=== PATIENT | female | born 1995 ===

== ENCOUNTER 2020-02-10 08:09 | Inpatient (IN) | payer OTHER ==
[2020-02-10] MEDS ORDERED: Sodium Chloride 0.9% 2.5 ML Syringe FLUSH PRN (09:14)
[2020-02-10] MEDS ORDERED: Carboprost Tromethamine 250 MCG/1 ML Amp IM PRN (09:14)
[2020-02-10] MEDS ORDERED: Butorphanol 1 MG/ML SDV IVPUSH PRN (09:14)
[2020-02-10] MEDS ORDERED: Nalbuphine 10 MG/1 ML Vial IVPUSH PRN (09:14)
[2020-02-10] MEDS ORDERED: Sodium Chloride 0.9% 10 ML Syringe FLUSH PRN (09:14)
[2020-02-10] MEDS ORDERED: Tranexamic Acid 1,000 MG in Sodium Chloride 0.9% 100 ML IV PRN (09:14)
[2020-02-10] MEDS ORDERED: Water For Irrigation,Sterile 1,000 ML Container IRR PRN (09:14)
[2020-02-10] MEDS ORDERED: Sodium Chloride 0.9% 10 ML SDV IV PRN (09:14)
[2020-02-10] MEDS ORDERED: Ondansetron 4 MG/2 ML SDV IVPUSH PRN (09:14)
[2020-02-10] MEDS ORDERED: Misoprostol 200 MCG Tab PO PRN (09:14)
[2020-02-10] MEDS ORDERED: Methylergonovine 0.2 MG/1 ML Amp IM PRN (09:14)
[2020-02-10] MEDS ORDERED: Lidocaine 1% 50 ML MDV INJECT PRN (09:14)
[2020-02-10] MEDS ORDERED: Lactated Ringers 1,000 ML IV SCH (09:15)
[2020-02-10] MEDS ORDERED: Oxytocin/0.9 % Sodium Chloride 30 UNIT/500 ML BAG IV SCH ×2 (09:15→09:30)
[2020-02-10] MEDS ORDERED: Witch Hazel Medicated Pads 40/Jar TOP PRN (11:27)
[2020-02-10] MEDS ORDERED: Lanolin 100% Cream 7 GM Tube TOP PRN (11:27)
[2020-02-10] MEDS ORDERED: Benzocaine/Menthol 20%-0.5% Spray 78 GM Cannister TOP PRN (11:27)
[2020-02-10] MEDS ORDERED: Ibuprofen 400 MG Tab PO PRN (11:27)
[2020-02-10] MEDS ORDERED: Bisacodyl 10 MG Supp RECTAL PRN (11:27)
[2020-02-10] MEDS ORDERED: Acetaminophen 500 MG Tab PO PRN (11:27)
[2020-02-10] MEDS ORDERED: oxyCODONE 5 MG Tab PO PRN (11:27)
[2020-02-10] MEDS ORDERED: Ibuprofen 800 MG Tab PO PRN (11:27)
[2020-02-10] MEDS ORDERED: Docusate Sodium 100 MG Cap PO PRN (11:27)
--- NOTE | 2020-02-10 11:34 | PCM.OPNOTE ---
- General Post-Op/Procedure Note Date of Surgery/Procedure: 02/10/20 Operative Procedure(s): /2nd MLL repaired Findings: Viable female APGARs 9, 9 weight pending. Spontaneous delivery intact placenta with 3V cord Pre Op Diagnosis: 40/4 week IUP. SROM/labor Post-Op Diagnosis: Same Anesthesia Technique: Local, Other (see below) (pudendal) Primary Surgeon: Joyce Rudolph EBL in mLs: 300 Complications: none known Condition: Good Free Text/Narrative:: Dictation [id number]
--- NOTE | 2020-02-10 12:27 | OR ---
SURGEON: Joyce Rudolph M.D. DATE OF PROCEDURE: 02/10/2020 PREOPERATIVE DIAGNOSES: 1. 40 and 4 weeks' intrauterine . 2. Spontaneous rupture of membranes, active labor. POSTOPERATIVE DIAGNOSES: 1. 40 and 4 weeks' intrauterine . 2. Spontaneous rupture of membranes, active labor. PROCEDURE: Spontaneous vaginal delivery with second-degree midline laceration, repaired. PRIMARY SURGEON: Joyce Rudolph M.D. ANESTHESIA: Pudendal with local. ESTIMATED BLOOD LOSS: 300 mL. COMPLICATIONS: None known. FINDINGS: Viable female. scores of 9 at 1 minute and 9 at 5 minutes. Weight is pending. Spontaneous delivery, intact placenta, 3-vessel cord. DISPOSITION: Infant to nursery. Mom in LDRP. PROCEDURE DETAILS: Batsheva is a 24-year-old, G1, P0, at 40 and 4 weeks' gestational age, presented on the morning of 02/10/2020 with leakage of fluid beginning at approximately 7 a.m. Upon presentation, she was found to be grossly ruptured, clear fluid. She is group B strep negative. She was admitted, routine labs drawn. IV hydration was initiated. She was found to be 4 to 5 cm. She quickly progressed within the next hour to feeling pushy and was requesting epidural. She at that time was found to be complete, 100% effaced, at a +1 station. heart tones 140s. Upon my arrival, options discussed with the patient and she opted to proceed with pudendal block and to start pushing efforts. The patient was placed in modified dorsal lithotomy position and prepped and draped in the usual aseptic manner using 1% lidocaine, was able to palpate the pudendal notch on either side of the pelvis and 5 mL of 1% lidocaine was instilled at this region on the right side followed by the left side as well as 5 mL of 1% lidocaine along the midline perineum. The patient continued with pushing efforts, pushed adequately to a +3 station. The patient continued to push, was able to deliver 's head atraumatically spontaneously, followed by anterior shoulder, posterior shoulder, and remainder of body without difficulty. The 's oropharynx and nares were bulb suctioned. was vigorous and crying. Infant was handed off to her mother, attending nurse staff at her side. After delayed cord was clamped x2 and cut, cord arterial, cord venous, cord blood sampling was obtained. Light pressure was applied while the placenta was delivered spontaneously intact. Vigorous fundal uterine massage was then applied while 30 units of Pitocin was delivered in 500 mL IV fluid. Upon inspection of cervix, vaginal sidewall, and perineum, there was found to be second-degree midline laceration repaired using 3-0 Vicryl in the usual fashion. Hemostasis appeared evident. Uterus remained firm. Sponge, instrument, and needle count were correct. The patient remained in LDRP, infant to nursery. ISIDORO / OSIEL /[id number]
[2020-02-10] MEDS: Acetaminophen 500 MG Tab PO PRN (14:25)
[2020-02-11] MEDS: Acetaminophen 500 MG Tab PO PRN (07:55)
--- NOTE | 2020-02-11 12:14 | PCM.PNPP ---
- General Info Date of Service: 02/11/20 Functional Status: Reports: Pain Controlled, Tolerating Diet, Ambulating, Urinating - Review of Systems General: Denies: Fever, Weakness, Fatigue Pulmonary: Denies: Shortness of Breath Cardiovascular: Denies: Chest Pain, Palpitations, Lightheadedness Gastrointestinal: Denies: Abdominal Pain, Nausea, Vomiting Genitourinary: Denies: Flank Pain Musculoskeletal: Reports: No Symptoms Skin: Reports: No Symptoms Neurological: Reports: No Symptoms Psychiatric: Reports: No Symptoms - General Info Date of Service: 02/11/20 - Patient Data Vital Signs - Most Recent: Last Vital Signs Temp 36.2 C 02/11/20 08:00 Pulse 89 02/11/20 08:00 Resp 17 02/11/20 08:00 BP 134/71 02/11/20 08:00 Pulse Ox 98 02/11/20 08:00 Weight - Most Recent: 90.718 kg Lab Results - Last 24 Hours: Laboratory Results - last 24 hr 02/11/20 Range/Units 06:10 Hgb 12.6 (12.0-16.0) g/dL Hct 37.7 (36.0-46.0) % Med Orders - Current: Current Medications Acetaminophen (Tylenol Extra Strength) 500 mg PO Q4H PRN PRN Reason: Pain Acetaminophen (Tylenol Extra Strength) 1,000 mg PO Q4H PRN PRN Reason: Pain Last Admin: 02/11/20 07:55 Dose: 1,000 mg Documented by: Benzocaine/Menthol (Dermoplast Pain Relief 20%-0.5% Cornelius) 78 gm TOP ASDIRECTED PRN PRN Reason: Perineal Comfort Measure Last Admin: 02/10/20 12:52 Dose: 1 spray Documented by: Bisacodyl (Dulcolax) 10 mg RECTAL ONETIME PRN PRN Reason: Constipation Carboprost Tromethamine (Hemabate Ds) 250 mcg IM ASDIRECTED PRN PRN Reason: Post Hemorrhage Docusate Sodium (Colace) 100 mg PO BID PRN PRN Reason: Constipation Last Admin: 02/11/20 04:24 Dose: 100 mg Documented by: Emollient Ointment (Lansinoh Hpa) 0 gm TOP ASDIRECTED PRN PRN Reason: Sore Nipples Last Admin: 02/10/20 14:28 Dose: 7 gram Documented by: Lactated Ringer's (Ringers, Lactated) 1,000 mls @ 150 mls/hr IV ASDIRECTED SONAM Last Infusion: 02/10/20 09:26 Dose: 500 mls/hr Documented by: Oxytocin/Sodium Chloride (Oxytocin 30 Unit/500 Ml-Ns) 30 unit in 500 mls @ 999 mls/hr IV TITRATE SONAM Last Admin: 02/10/20 10:31 Dose: 999 mls/hr Documented by: Tranexamic Acid 1,000 mg/ (Sodium Chloride) 110 mls @ 660 mls/hr IV ONETIME PRN PRN Reason: Bleeding Oxytocin/Sodium Chloride (Oxytocin 30 Unit/500 Ml-Ns) 30 unit in 500 mls @ 2 mls/hr IV TITRATE [facility]; Protocol Ibuprofen (Motrin) 400 mg PO Q4H PRN PRN Reason: Pain Ibuprofen (Motrin) 800 mg PO Q6H PRN PRN Reason: Pain Last Admin: 02/10/20 14:25 Dose: 800 mg Documented by: Lidocaine HCl (Xylocaine 1%) 50 ml INJECT ONETIME PRN PRN Reason: Laceration repair Last Admin: 02/10/20 10:55 Dose: 50 ml Documented by: Methylergonovine Maleate (Methergine) 0.2 mg IM ASDIRECTED PRN PRN Reason: Post Hemorrhage Misoprostol (Cytotec) 200 mcg PO ONETIME PRN PRN Reason: Post Hemorrhage Nalbuphine HCl (Nubain) 10 mg IVPUSH Q1H PRN PRN Reason: Pain (severe 7-10) Ondansetron HCl (Zofran) 4 mg IVPUSH Q4H PRN PRN Reason: Nausea/Vomiting Oxycodone HCl (Oxycodone) 5 mg PO Q2H PRN PRN Reason: Pain Sodium Chloride (Saline Flush) 10 ml FLUSH ASDIRECTED PRN PRN Reason: Keep Vein Open Sodium Chloride (Saline Flush) 2.5 ml FLUSH ASDIRECTED PRN PRN Reason: Keep Vein Open Sodium Chloride (Normal Saline) 10 ml IV ASDIRECTED PRN PRN Reason: IV Use Sterile Water (Sterile Water For Irrigation) 1,000 ml IRR ASDIRECTED PRN PRN Reason: delivery Last Admin: 02/10/20 10:57 Dose: 1,000 ml Documented by: Severiano Topete (Mahesh) 1 pad TOP ASDIRECTED PRN PRN Reason: comfort care Last Admin: 02/10/20 12:52 Dose: 1 pad Documented by: Discontinued Medications Butorphanol Tartrate (Stadol) 1 mg IVPUSH Q1H PRN PRN Reason: Pain - Infant Interaction Support Person: - Recovery Exam Fundal Tone: Firm Fundal Level: 1 Fingerbreadths Below Umbilicus Fundal Placement: Midline Lochia Amount: Scant Lochia Color: Rubra/Red Perineum Description: Edematous, Other (see below) Other Perinuem Description: 2nd degree laceration with repair. Episiotomy/Laceration: Approximated Bladder Status: Voiding Urinary Elimination: Voided - Exam General: Alert, Oriented Lungs: Normal Respiratory Effort Cardiovascular: Regular Rate, Regular Rhythm GI/Abdominal Exam: Normal Bowel Sounds, Soft Extremities: Pedal Edema (trace). No: Des's Sign Skin: Warm, Dry, Intact Neurological: No New Focal Deficit - Problem List & Annotations (1) Vaginal delivery SNOMED Code(s): 401169851 Code(s): O80 - ENCOUNTER FOR FULL-TERM UNCOMPLICATED DELIVERY Status: Acute Current Visit: Yes - Problem List Review Problem List Initiated/Reviewed/Updated: Yes - My Orders Last 24 Hours: My Active Orders 02/10/20 11:27 Patient Status [ADT] Routine May Shower [RC] ASDIRECTED Notify Provider Vital Signs [RC] ASDIRECTED Up ad Mary [RC] ASDIRECTED Vital Signs [RC] PER UNIT ROUTINE Acetaminophen [Tylenol Extra Strength] 1,000 mg PO Q4H PRN Acetaminophen [Tylenol Extra Strength] 500 mg PO Q4H PRN Benzocaine/Menthol [Dermoplast Pain Relief 20%-0.5% Cornelius] 78 gm TOP ASDIRECTED PRN Docusate Sodium [Colace] 100 mg PO BID PRN Ibuprofen [Motrin] 400 mg PO Q4H PRN Ibuprofen [Motrin] 800 mg PO Q6H PRN Lanolin [Lansinoh HPA] See Dose Instructions TOP ASDIRECTED PRN bisacodyL [Dulcolax] 10 mg RECTAL ONETIME PRN oxyCODONE 5 mg PO Q2H PRN severiano Topete [Tucks] 1 pad TOP ASDIRECTED PRN Assess Lochia [WOMSER] Per Unit Routine Assess Uterine Involution [WOMSER] Per Unit Routine Peripheral IV Discontinue [OM.PC] Routine 02/10/20 11:28 Ice Therapy [OM.PC] Per Unit Routine Perineal Care [OM.PC] Per Unit Routine Sitz Bath [OM.PC] Per Unit Routine 02/11/20 12:12 Ready for Discharge [RC] PER UNIT ROUTINE - Assessment Assessment:: PPD 1 status post - Plan Plan:: Patient is doing well-- is going well. Discharge instructions reviewed. Discharge to home today. Follow up at [facility] 6 weeks.
== END 2020-02-11 13:10 | disposition home or self-care (01) | DRG 807 ==
LOC: MW.OBCHECK 08:09 → MW.OB 08:09 → MW.OBCHECK 09:13 → MW.OB 09:14 → OBSVTOIN 10:31 → MW.OB 13:46
PROVIDERS: ADMIT Obstetrics & Gynecology; ATTEND Obstetrics & Gynecology
PROC: 10E0XZZ Delivery of Products of Conception, External Approach (ICD-10-PCS; principal; 2020-02-10)
PROC: 0KQM0ZZ Repair Perineum Muscle, Open Approach (ICD-10-PCS; 2020-02-10)
PROC: 3E0T3BZ Introduction of Anesthetic Agent into Peripheral Nerves and Plexi, Percutaneous Approach (ICD-10-PCS; 2020-02-10)
DX: O48.0 Post-term pregnancy (principal); Z37.0 Single live birth; Z3A.40 40 weeks gestation of pregnancy; O70.1 Second degree perineal laceration during delivery; Z20.828 Contact with and (suspected) exposure to other viral communicable diseases
CPT/HCPCS: 36415; 59025; 59409; 82803; 84112; 85014; 85018; 85027; 86592; 86593; 86850; 86900; 86901; A9270-GY; J2001; J2590; J7120; U0002